=== PATIENT | female | born 1955 | race Two or more races ===

== ENCOUNTER 2017-05-18 09:55 | Inpatient (IN) | payer MEDICARE, MEDICAID ==
[~2017-05-18] VITALS: Ht 152.4 cm; Wt 55.1 kg
[2017-05-18] VITALS (7 sets, daily range): BP systolic 169–195; BP diastolic 96–106
[2017-05-18 11:04] LABS: Basophils # (auto) 0 uL; Eosinophils # (auto) 0.1 uL; Monocytes # (auto) 0.6 uL; Neutrophils # (auto) 6.4 uL
[2017-05-18 11:06] LABS: Basophils % (auto) 0.4 % (0.0-2.0); Eosinophils % (auto) 1.1 % (0.0-7.0); Hematocrit 21.7 % (36.0-46.0); Hemoglobin 7.5 g/dL (12.2-16.2); Lymphocytes # (auto) 0.9 uL; Lymphocytes % (auto) 10.6 % (10.0-50.0); Mean Corpuscular Hemoglobin 31.6 pg (28.0-32.0); Mean Corpuscular Hgb Conc. 34.4 g/dL (32.0-36.0); Mean Corpuscular Volume 91.8 fL (80.0-100.0); Monocytes % (auto) 7.9 % (0.0-12.0); Platelet Count (auto) 160 10^3/uL (140-450); Red Blood Cells 2.37 10^6/uL (4.0-5.20); Red Cell Distribution Width 19.1 % (11.8-14.3)
[2017-05-18 11:11] LABS: INR 0.97 (0.9-1.15); Partial Thromboplastin Time 28.7 sec (22.64-33.71); Prothrombin Time 10.6 sec (9.37-12.3)
[2017-05-18 11:31] LABS: Alanine Aminotransferase 20 U/L (13-56); Albumin 3.3 g/dL (3.4-5.0); Alkaline Phosphatase 209 U/L (45-117); Anion Gap 10 (5-15); Aspartate Aminotransferase 21 U/L (15-37); Bilirubin, Total 0.5 mg/dL (0.2-1.0); Blood Urea Nitrogen 32 mg/dL (7-18); Carbon Dioxide 30 mmol/L (21-32); Chloride 93 mmol/L (98-107); GFR African American 8 mL/min; GFR Non-African American 7 mL/min; Glucose 138 mg/dL (74-106); Potassium 3.8 mmol/L (3.5-5.1); Sodium 133 mmol/L (136-145); Total Protein 8.4 g/dL (6.4-8.2)
[2017-05-18] MEDS ORDERED: NIF10C PO (13:05)
[2017-05-18] MEDS ORDERED: TERA2CAP45 PO (13:05)
[2017-05-18] MEDS ORDERED: CLO01T PO (13:05)
[2017-05-18] MEDS ORDERED: SEVE800T8 PO (13:05)
[2017-05-18] MEDS ORDERED: CITA10TA59 PO (13:05)
[2017-05-18] MEDS ORDERED: ATOR20TA50 PO (13:05)
[2017-05-18] MEDS ORDERED: PANT40TA2 PO (13:05)
[2017-05-18] MEDS ORDERED: CINA30TA2 PO (13:05)
[2017-05-18] MEDS ORDERED: MORPHINE SULFATE 4 MG/ML SYR/VIAL IV PRN (13:15)
[2017-05-18] MEDS ORDERED: HYDROcodone-ACET 5/325MG TAB PO PRN (13:15)
[2017-05-18] MEDS ORDERED: ONDANSETRON HCL 4 MG/2 ML VIAL IV PRN (13:15)
[2017-05-18] MEDS ORDERED: NIFE60TA53 PO ×2 (13:26→13:29)
[2017-05-18] MEDS ORDERED: PANTOPRAZOLE 40 MG TAB PO SCH (13:30)
[2017-05-18] MEDS ORDERED: cloNIDine HCL 0.1 MG TAB PO SCH (13:30)
[2017-05-18] MEDS ORDERED: NIFEdipine 10 MG CAP PO SCH (13:30)
[2017-05-18 13:40] LABS: Phosphorus 1.5 mg/dL (2.5-4.90)
[2017-05-18] MEDS ORDERED: cloNIDine HCL 0.1 MG TAB PO ONE (13:45)
[2017-05-18] MEDS ORDERED: EPOETIN ALFA 10,000 UNIT/1 ML VIAL IV ONE (13:45)
[2017-05-18] MEDS ORDERED: SODIUM CHL 0.9% 1000 ML BAG XX ONE (13:45)
[2017-05-18] MEDS ORDERED: PANTOPRAZOLE 40 MG TAB PO ONE (13:45)
[2017-05-18] MEDS ORDERED: SEVELAMER 800 MG TAB PO SCH (18:00)
[2017-05-18] MEDS: CINACALCET HYDROCHLORIDE 30 MG TAB PO SCH (18:48)
[2017-05-18] MEDS: CITALOPRAM HYDROBR 20 MG TAB PO SCH (18:48)
[2017-05-18] MEDS: LABETALOL HCL 5 MG/ML ML 20ML VIAL IV PRN (20:47)
[2017-05-18] MEDS ORDERED: NIFEdipine ER 30 MG TAB PO SCH (22:00)
[2017-05-18] MEDS: ATORVASTATIN 20 MG TAB PO SCH (22:37)
[2017-05-18 23:13] LABS: Basophils # (auto) 0 uL; Basophils % (auto) 0.4 % (0.0-2.0); Eosinophils # (auto) 0.1 uL; Eosinophils % (auto) 0.7 % (0.0-7.0); Hematocrit 27.4 % (36.0-46.0); Hemoglobin 9.1 g/dL (12.2-16.2); Lymphocytes # (auto) 0.9 uL; Lymphocytes % (auto) 11.5 % (10.0-50.0); Mean Corpuscular Hemoglobin 30.6 pg (28.0-32.0); Mean Corpuscular Hgb Conc. 33.1 g/dL (32.0-36.0); Mean Corpuscular Volume 92.4 fL (80.0-100.0); Monocytes # (auto) 0.7 uL; Monocytes % (auto) 9.4 % (0.0-12.0); Neutrophils # (auto) 5.9 uL; Platelet Count (auto) 161 10^3/uL (140-450); Red Blood Cells 2.96 10^6/uL (4.0-5.20); Red Cell Distribution Width 17.1 % (11.8-14.3); White Blood Cell 7.6 10^3/uL (4.4-10.8)
[2017-05-18 23:27] LABS: Albumin 2.9 g/dL (3.4-5.0); Calcium 8.5 mg/dL (8.5-10.1); Potassium 3.9 mmol/L (3.5-5.1)
[2017-05-18 23:38] LABS: BUN/Creatinine Ratio 3.7; Bilirubin, Total 0.6 mg/dL (0.2-1.0); Total Protein 7.7 g/dL (6.4-8.2)
[2017-05-19] VITALS (8 sets, daily range): BP systolic 148–205; BP diastolic 79–114
[2017-05-19 06:23] LABS: Basophils # (auto) 0 uL; Basophils % (auto) 0.6 % (0.0-2.0); Eosinophils # (auto) 0.1 uL; Eosinophils % (auto) 1.1 % (0.0-7.0); Hematocrit 27.4 % (36.0-46.0); Hemoglobin 9.4 g/dL (12.2-16.2); Lymphocytes % (auto) 13.5 % (10.0-50.0); Mean Corpuscular Hemoglobin 31.1 pg (28.0-32.0); Mean Corpuscular Hgb Conc. 34.1 g/dL (32.0-36.0); Mean Corpuscular Volume 91.2 fL (80.0-100.0); Monocytes # (auto) 0.8 uL; Monocytes % (auto) 10.6 % (0.0-12.0); Neutrophils # (auto) 5.3 uL; Neutrophils % (auto) 74.2 % (37.0-80.0); Platelet Count (auto) 150 10^3/uL (140-450); Red Blood Cells 3.01 10^6/uL (4.0-5.20); White Blood Cell 7.1 10^3/uL (4.4-10.8)
[2017-05-19 06:33] LABS: Potassium 4.1 mmol/L (3.5-5.1)
[2017-05-19 06:38] LABS: Calcium 8.9 mg/dL (8.5-10.1)
[2017-05-19] MEDS ORDERED: cloNIDine HCL 0.1 MG TAB PO SCH (10:00)
[2017-05-19] MEDS: CINACALCET HYDROCHLORIDE 30 MG TAB PO SCH ×2 (10:00→16:11)
[2017-05-19] MEDS ORDERED: PANTOPRAZOLE 40 MG TAB PO SCH (10:00)
[2017-05-19] MEDS ORDERED: NIFEdipine 10 MG CAP PO SCH (10:00)
[2017-05-19] MEDS: cloNIDine HCL 0.1 MG TAB PO SCH (10:44)
[2017-05-19] MEDS: PANTOPRAZOLE 40 MG TAB PO SCH (10:44)
[2017-05-19] MEDS: CITALOPRAM HYDROBR 20 MG TAB PO SCH (10:45)
[2017-05-19] MEDS: NIFEdipine ER 30 MG TAB PO SCH (10:46)
[2017-05-19] MEDS: LABETALOL HCL 5 MG/ML ML 20ML VIAL IV PRN ×2 (13:13→16:12)
[2017-05-19] MEDS: cloNIDine HCL 0.1 MG TAB PO PRN ×2 (13:14→21:10)
[2017-05-19] MEDS: BOOST PLUS 8 ounce PO SCH (19:45)
[2017-05-19] MEDS: ATORVASTATIN 20 MG TAB PO SCH (21:09)
[2017-05-20 05:20] VITALS: BP 122/72
[2017-05-20 07:04] LABS: Basophils # (auto) 0 uL; Basophils % (auto) 0.4 % (0.0-2.0); Eosinophils # (auto) 0.1 uL; Eosinophils % (auto) 1.1 % (0.0-7.0); Hemoglobin 10.1 g/dL (12.2-16.2); Lymphocytes % (auto) 15.5 % (10.0-50.0); Mean Corpuscular Hemoglobin 30.9 pg (28.0-32.0); Mean Corpuscular Hgb Conc. 33.7 g/dL (32.0-36.0); Mean Corpuscular Volume 91.7 fL (80.0-100.0); Monocytes # (auto) 0.6 uL; Monocytes % (auto) 9.5 % (0.0-12.0); Neutrophils # (auto) 4.9 uL; Neutrophils % (auto) 73.5 % (37.0-80.0); Platelet Count (auto) 165 10^3/uL (140-450); Red Blood Cells 3.28 10^6/uL (4.0-5.20); Red Cell Distribution Width 17.4 % (11.8-14.3); White Blood Cell 6.7 10^3/uL (4.4-10.8)
[2017-05-20 07:32] LABS: BUN/Creatinine Ratio 4.7; Calcium 8.7 mg/dL (8.5-10.1); Potassium 4.4 mmol/L (3.5-5.1)
[2017-05-20 08:00] VITALS: BP 165/89
[2017-05-20] MEDS: BOOST PLUS 8 ounce PO SCH ×2 (08:19→12:00)
[2017-05-20 09:00] VITALS: BP 165/89
[2017-05-20] MEDS: PANTOPRAZOLE 40 MG TAB PO SCH (09:27)
[2017-05-20] MEDS: cloNIDine HCL 0.1 MG TAB PO SCH ×2 (09:27→10:00)
[2017-05-20] MEDS: NIFEdipine ER 30 MG TAB PO SCH ×2 (09:28→10:00)
[2017-05-20] MEDS: CITALOPRAM HYDROBR 20 MG TAB PO SCH (09:28)
[2017-05-20] MEDS ORDERED: HEPARIN 1,000 UNITS/ml 1ML VIAL IV ONE (11:00)
[2017-05-20] MEDS ORDERED: EPOETIN ALFA 10,000 UNIT/1 ML VIAL IV ONE (11:00)
[2017-05-20 11:02] VITALS: BP 165/89
[2017-05-20] MEDS ORDERED: HEPARIN 1,000 UNITS/ml 1ML VIAL XX ONE (11:45)
== END 2017-05-20 14:40 | disposition home or self-care (01) | DRG 682 ==
LOC: ER 09:55 → OVERFLOW 09:56 → CENTRAL 20:57
PROVIDERS: ADMIT Internal Medicine; ATTEND Internal Medicine
PROC: 30233N1 Transfusion of Nonautologous Red Blood Cells into Peripheral Vein, Percutaneous Approach (ICD-10-PCS; principal; 2017-05-18)
PROC: 5A1D70Z Performance of Urinary Filtration, Intermittent, Less than 6 Hours Per Day (ICD-10-PCS; 2017-05-18)
PROC: 5A1D70Z Performance of Urinary Filtration, Intermittent, Less than 6 Hours Per Day (ICD-10-PCS; 2017-05-20)
DX: I13.11 Hypertensive heart and chronic kidney disease without heart failure, with stage 5 chronic kidney disease, or end stage renal disease (principal); N18.6 End stage renal disease; E11.22 Type 2 diabetes mellitus with diabetic chronic kidney disease; E44.0 Moderate protein-calorie malnutrition; Z94.0 Kidney transplant status; D63.8 Anemia in other chronic diseases classified elsewhere; E78.5 Hyperlipidemia, unspecified; I70.0 Atherosclerosis of aorta; F32.9 Major depressive disorder, single episode, unspecified; F41.9 Anxiety disorder, unspecified; Z85.118 Personal history of other malignant neoplasm of bronchus and lung; Z90.2 Acquired absence of lung [part of]; Z68.23 Body mass index [BMI] 23.0-23.9, adult; Z99.2 Dependence on renal dialysis; Z79.899 Other long term (current) drug therapy; Z88.2 Allergy status to sulfonamides
CPT/HCPCS: 36415; 36430; 71045; 71046; 80048; 80053; 80061; 83036; 84100; 84443; 84484; 85025; 85610; 85730; 86850; 86900; 86901; 86920; 87081; 90935; 93005; 96374; 99291; J0885; J1642; J2405

== ENCOUNTER 2017-09-21 21:55 | Inpatient (IN) | payer MEDICARE, MEDICAID ==
[~2017-09-21] VITALS: Ht 154.9 cm; Wt 50.0 kg
[~2017-09-21 21:55] MED LIST: ATOR20TA50 PO; CINA30TA2 PO; CITA10TA59 PO; CLO01T PO; NIFE60TA53 PO; PANT40TA2 PO; SEVE800T8 PO; TERA2CAP45 PO
[2017-09-21] MEDS ORDERED: ONDANSETRON HCL 4 MG/2 ML VIAL ONE (22:30)
[2017-09-21 22:54] LABS: Basophils # (auto) 0.1 uL; Eosinophils # (auto) 0 uL; Eosinophils % (auto) 0.4 % (0.0-7.0); Monocytes # (auto) 0.7 uL; Neutrophils # (auto) 7.2 uL
[2017-09-21 22:55] LABS: Basophils % (auto) 0.7 % (0.0-2.0); Hematocrit 21.5 % (36.0-46.0); Hemoglobin 7.3 g/dL (12.2-16.2); Lymphocytes # (auto) 1.9 uL; Mean Corpuscular Hemoglobin 32.8 pg (28.0-32.0); Mean Corpuscular Hgb Conc. 34.1 g/dL (32.0-36.0); Mean Corpuscular Volume 96.3 fL (80.0-100.0); Monocytes % (auto) 7.1 % (0.0-12.0); Neutrophils % (auto) 72.8 % (37.0-80.0); Platelet Count (auto) 154 10^3/uL (140-450); Red Blood Cells 2.23 10^6/uL (4.0-5.20); Red Cell Distribution Width 15.4 % (11.8-14.3); White Blood Cell 9.9 10^3/uL (4.4-10.8)
[2017-09-21] MEDS ORDERED: ONDANSETRON HCL 4 MG/2 ML VIAL IV ONE (23:00)
[2017-09-21 23:08] LABS: Albumin 3.4 g/dL (3.4-5.0); BUN/Creatinine Ratio 8.1; Calcium 9.1 mg/dL (8.5-10.1); Magnesium 2.9 mg/dL (1.6-2.6); Potassium 5.1 mmol/L (3.5-5.1)
[2017-09-21 23:13] LABS: Bilirubin, Total 0.5 mg/dL (0.2-1.0); Total Protein 8.1 g/dL (6.4-8.2)
[2017-09-21 23:28] LABS: INR 0.97 (0.9-1.15); Prothrombin Time 10.4 sec (9.27-12.13)
[2017-09-22] MEDS ORDERED: cloNIDine HCL 0.1 MG TAB ONE (00:08)
[2017-09-22] MEDS ORDERED: cloNIDine HCL 0.1 MG TAB PO ONE (01:00)
[2017-09-22] MEDS ORDERED: LABETALOL HCL 200 MG TAB PO ONE (01:45)
[2017-09-22 01:50] VITALS: BP 186/120
[2017-09-22 02:10] VITALS: BP 185/122
[2017-09-22] MEDS ORDERED: PANTOPRAZOLE 40 MG/10 ML VIAL IV ONE (05:15)
[2017-09-22] MEDS ORDERED: MORPHINE SULFATE 4 MG/ML SYR/VIAL IV ONE ×2 (05:15)
[2017-09-22] MEDS ORDERED: ONDANSETRON HCL 4 MG/2 ML VIAL IV ONE ×2 (05:15)
[2017-09-22 05:20] VITALS: BP 186/124
[2017-09-22] MEDS ORDERED: MORPHINE SULF INJ 2 MG/ML SYRINGE 1ML IV PRN (05:30)
[2017-09-22] MEDS ORDERED: DEXTROSE (50%) 50ML SYRG IV PRN (05:30)
[2017-09-22] MEDS ORDERED: TEMAZEPAM 15 MG CAP PO PRN (05:30)
[2017-09-22] MEDS ORDERED: NITROGLYCERIN 0.4 MG SL TAB SL PRN (05:30)
[2017-09-22] MEDS ORDERED: ACETAMINOPHEN 325 MG TAB PO PRN (05:30)
[2017-09-22 06:12] LABS: Hematocrit 27.3 % (36.0-46.0); Hemoglobin 9.4 g/dL (12.2-16.2)
[2017-09-22 06:32] LABS: INR 1.01 (0.9-1.15); Partial Thromboplastin Time 28.8 sec (23.78-33.04); Prothrombin Time 10.8 sec (9.27-12.13)
[2017-09-22] MEDS: ACCU-CHEK COMFORT CURVE STRIP VI SCH ×4 (07:38→23:55)
[2017-09-22] MEDS: InsuLIN REG 1unit/0.01ml Soln (100units/ml) SC SCH ×4 (07:42→23:56)
[2017-09-22] MEDS: SEVELAMER 800 MG TAB PO SCH ×3 (08:00→18:00)
[2017-09-22] MEDS: cloNIDine HCL 0.1 MG TAB PO SCH ×2 (09:40→21:52)
[2017-09-22] MEDS: NIFEdipine ER 30 MG TAB PO SCH (09:40)
[2017-09-22] MEDS ORDERED: LISINOPRIL 20 MG TAB PO ONE (10:30)
[2017-09-22] MEDS: ONDANSETRON HCL 4 MG/2 ML VIAL IV PRN ×2 (10:39→17:57)
[2017-09-22] MEDS ORDERED: PROMETHAZINE HCL 25 MG/ML 1ML ONE (12:06)
[2017-09-22] MEDS ORDERED: PROMETHAZINE HCL 25 MG/ML 1ML IV ONE (12:15)
[2017-09-22] MEDS ORDERED: SODIUM CHL 0.9% 1000 ML BAG XX ONE (14:00)
[2017-09-22] MEDS ORDERED: EPOETIN ALFA 10,000 UNIT/1 ML VIAL IV ONE (14:00)
[2017-09-22] MEDS ORDERED: GOLYTELY 4L KIT PO ONE (16:00)
[2017-09-22 20:00] VITALS: BP 150/97
[2017-09-22] MEDS: PANTOPRAZOLE 40 MG/10 ML VIAL IV SCH (21:50)
[2017-09-22] MEDS: ATORVASTATIN 20 MG TAB PO SCH (21:51)
[2017-09-22 22:00] VITALS: BP 150/97
[2017-09-23] MEDS ORDERED: CINA30TA2 PO (01:10)
[2017-09-23] MEDS ORDERED: LABE200T18 PO (01:10)
[2017-09-23] MEDS ORDERED: B-CO1CAP6 PO (01:10)
[2017-09-23] MEDS ORDERED: CALC0.25 PO (01:10)
[2017-09-23] MEDS ORDERED: ATOR10TA52 PO (01:10)
[2017-09-23] MEDS ORDERED: SERT-160 PO (01:10)
[2017-09-23 05:00] VITALS: BP 169/94
[2017-09-23] MEDS ORDERED: GOLYTELY 4L KIT PO ONE (06:00)
[2017-09-23] MEDS: InsuLIN REG 1unit/0.01ml Soln (100units/ml) SC SCH ×4 (06:00→23:47)
[2017-09-23] MEDS: ACCU-CHEK COMFORT CURVE STRIP VI SCH ×4 (06:29→23:47)
[2017-09-23 07:13] LABS: Albumin 3.4 g/dL (3.4-5.0); BUN/Creatinine Ratio 4.9; Calcium 8.9 mg/dL (8.5-10.1)
[2017-09-23 07:14] LABS: Basophils # (auto) 0 uL; Basophils % (auto) 0.7 % (0.0-2.0); Eosinophils # (auto) 0 uL; Hemoglobin 8.5 g/dL (12.2-16.2); Lymphocytes # (auto) 0.7 uL; Lymphocytes % (auto) 13.1 % (10.0-50.0); Mean Corpuscular Hemoglobin 32.1 pg (28.0-32.0); Mean Corpuscular Volume 94.3 fL (80.0-100.0); Monocytes # (auto) 0.6 uL; Monocytes % (auto) 12.5 % (0.0-12.0); Neutrophils # (auto) 3.7 uL; Neutrophils % (auto) 73.7 % (37.0-80.0); Nucleated Red Blood Cells % 0.2 %; Platelet Count (auto) 131 10^3/uL (140-450); Red Blood Cells 2.65 10^6/uL (4.0-5.20); Red Cell Distribution Width 16.8 % (11.8-14.3)
[2017-09-23 07:16] LABS: Bilirubin, Total 0.7 mg/dL (0.2-1.0); Total Protein 7.9 g/dL (6.4-8.2)
[2017-09-23] MEDS: SEVELAMER 800 MG TAB PO SCH ×3 (08:00→18:00)
[2017-09-23] MEDS: PANTOPRAZOLE 40 MG/10 ML VIAL IV SCH ×2 (08:21→21:39)
[2017-09-23] MEDS: cloNIDine HCL 0.1 MG TAB PO SCH ×2 (08:21→21:40)
[2017-09-23] MEDS: NIFEdipine ER 30 MG TAB PO SCH ×2 (08:22→10:00)
[2017-09-23] MEDS: ONDANSETRON HCL 4 MG/2 ML VIAL IV PRN (08:22)
[2017-09-23] MEDS: hydrALAZINE HCL 20 MG/ML VL IV PRN ×2 (08:22→18:31)
[2017-09-23] MEDS ORDERED: diphenhdrAMINE HCL 50 MG/1 ML VL ONE (08:44)
[2017-09-23] MEDS ORDERED: SODIUM CHLORIDE LOCK 10 ML ONE (08:44)
[2017-09-23] MEDS ORDERED: LIDOCAINE VISCOUS 2% 15ML UD ONE (08:44)
[2017-09-23 09:00] VITALS: BP 187/117
[2017-09-23] MEDS ORDERED: LABETALOL HCL 5 MG/ML ML 20ML VIAL IV ONE (09:34)
[2017-09-23] MEDS: MIDAZOLAM HCL 5 MG/ML-1ML VIAL ONE ×4 (09:39→09:57)
[2017-09-23] MEDS: fentaNYL CITRATE 100 MCG/2 ML VL ONE ×4 (09:39→09:57)
[2017-09-23] MEDS: LABETALOL HCL 200 MG TAB PO SCH ×2 (10:00→21:40)
[2017-09-23] MEDS ORDERED: PANTOPRAZOLE 40 MG/10 ML VIAL IV SCH (10:00)
[2017-09-23] MEDS ORDERED: LISINOPRIL 20 MG TAB PO SCH (10:00)
[2017-09-23] MEDS ORDERED: NICARDIPINE 25MG/250ML BAG KIT 250 ML IV SCH (11:00)
[2017-09-23 12:10] VITALS: BP 149/85
[2017-09-23 13:04] VITALS: BP 177/102
[2017-09-23 17:00] VITALS: BP 154/104
[2017-09-23] MEDS: ATORVASTATIN 20 MG TAB PO SCH (21:40)
[2017-09-23 22:00] VITALS: BP 158/92
[2017-09-24 05:00] VITALS: BP 140/78
[2017-09-24] MEDS: InsuLIN REG 1unit/0.01ml Soln (100units/ml) SC SCH ×2 (06:00→12:00)
[2017-09-24] MEDS: ACCU-CHEK COMFORT CURVE STRIP VI SCH ×2 (06:25→12:00)
[2017-09-24 07:04] LABS: Basophils # (auto) 0 uL; Eosinophils # (auto) 0 uL; Hemoglobin 7.9 g/dL (12.2-16.2); Lymphocytes # (auto) 0.6 uL; Mean Corpuscular Hemoglobin 32.4 pg (28.0-32.0); Mean Corpuscular Hgb Conc. 34.4 g/dL (32.0-36.0); Neutrophils # (auto) 3.4 uL; Neutrophils % (auto) 74.9 % (37.0-80.0); Nucleated Red Blood Cells % 0.2 %; Red Blood Cells 2.45 10^6/uL (4.0-5.20)
[2017-09-24 07:07] LABS: Basophils % (auto) 0.4 % (0.0-2.0); Eosinophils % (auto) 0.3 % (0.0-7.0); Hematocrit 23.1 % (36.0-46.0); Lymphocytes % (auto) 12.1 % (10.0-50.0); Mean Corpuscular Volume 94.2 fL (80.0-100.0); Monocytes # (auto) 0.6 uL; Monocytes % (auto) 12.3 % (0.0-12.0); Platelet Count (auto) 133 10^3/uL (140-450); Red Cell Distribution Width 16.3 % (11.8-14.3); White Blood Cell 4.6 10^3/uL (4.4-10.8)
[2017-09-24 07:14] LABS: Potassium 4.1 mmol/L (3.5-5.1)
[2017-09-24] MEDS: SEVELAMER 800 MG TAB PO SCH ×2 (08:00→13:34)
[2017-09-24 09:00] VITALS: BP 153/91
[2017-09-24] MEDS ORDERED: EPOETIN ALFA 10,000 UNIT/1 ML VIAL IV ONE (10:30)
[2017-09-24] MEDS: PANTOPRAZOLE 40 MG/10 ML VIAL IV SCH (13:32)
[2017-09-24] MEDS: cloNIDine HCL 0.1 MG TAB PO SCH (13:32)
[2017-09-24] MEDS: NIFEdipine ER 30 MG TAB PO SCH (13:33)
[2017-09-24] MEDS: LABETALOL HCL 200 MG TAB PO SCH (13:33)
[2017-09-24 14:13] VITALS: BP 210/101
== END 2017-09-24 16:30 | disposition home or self-care (01) | DRG 377 ==
LOC: EDBD 21:55 → ER 21:58 → TELE 21:59 → TELE-CENTR 09-22 18:10
PROVIDERS: ADMIT Nurse Practitioner; ATTEND Internal Medicine
PROC: 30233N1 Transfusion of Nonautologous Red Blood Cells into Peripheral Vein, Percutaneous Approach (ICD-10-PCS; 2017-09-22)
PROC: 5A1D70Z Performance of Urinary Filtration, Intermittent, Less than 6 Hours Per Day (ICD-10-PCS; 2017-09-22)
PROC: 0DJ08ZZ Inspection of Upper Intestinal Tract, Via Natural or Artificial Opening Endoscopic (ICD-10-PCS; 2017-09-23)
PROC: 0DJD8ZZ Inspection of Lower Intestinal Tract, Via Natural or Artificial Opening Endoscopic (ICD-10-PCS; principal; 2017-09-23 09:15)
PROC: 5A1D70Z Performance of Urinary Filtration, Intermittent, Less than 6 Hours Per Day (ICD-10-PCS; 2017-09-24)
DX: K92.2 Gastrointestinal hemorrhage, unspecified (principal); N18.6 End stage renal disease; I13.11 Hypertensive heart and chronic kidney disease without heart failure, with stage 5 chronic kidney disease, or end stage renal disease; Z94.0 Kidney transplant status; D62 Acute posthemorrhagic anemia; K64.8 Other hemorrhoids; E11.22 Type 2 diabetes mellitus with diabetic chronic kidney disease; E78.5 Hyperlipidemia, unspecified; Z85.118 Personal history of other malignant neoplasm of bronchus and lung; Z99.2 Dependence on renal dialysis; Z88.6 Allergy status to analgesic agent; Z88.2 Allergy status to sulfonamides; Z79.899 Other long term (current) drug therapy; Z83.3 Family history of diabetes mellitus; Z82.49 Family history of ischemic heart disease and other diseases of the circulatory system; Z90.2 Acquired absence of lung [part of]
CPT/HCPCS: 36415; 36430; 43235; 45378; 71045; 74176; 80048; 80053; 82270; 82962; 83690; 83735; 84484; 85014; 85018; 85025; 85610; 85730; 86850; 86900; 86901; 86920; 90935; 93005; 96374; 96375; A6257; C9113; J0885; J1815; J2250; J2405

== ENCOUNTER 2017-10-09 11:06 | Emergency (ER) | payer MEDICARE, MEDICAID ==
[~2017-10-09] VITALS: Ht 160 cm; Wt 49.9 kg
[~2017-10-09 11:06] MED LIST changes: +ATOR10TA52 PO; -ATOR20TA50 PO; +B-CO1CAP6 PO; +CALC0.25 PO; -CITA10TA59 PO; +LABE200T18 PO; +SERT-160 PO
[2017-10-09 11:23] VITALS: BP 189/98
[2017-10-09 12:07] LABS: Basophils # (auto) 0 uL; Basophils % (auto) 0.4 % (0.0-2.0); Eosinophils # (auto) 0 uL; Hematocrit 24.8 % (36.0-46.0); Hemoglobin 8.5 g/dL (12.2-16.2); Lymphocytes # (auto) 0.3 uL; Lymphocytes % (auto) 4.9 % (10.0-50.0); Mean Corpuscular Hemoglobin 31.5 pg (28.0-32.0); Mean Corpuscular Hgb Conc. 34.4 g/dL (32.0-36.0); Mean Corpuscular Volume 91.5 fL (80.0-100.0); Monocytes # (auto) 0.4 uL; Monocytes % (auto) 7.4 % (0.0-12.0); Neutrophils # (auto) 4.9 uL; Neutrophils % (auto) 87.3 % (37.0-80.0); Platelet Count (auto) 176 10^3/uL (140-450); Red Blood Cells 2.71 10^6/uL (4.0-5.20); Red Cell Distribution Width 15.4 % (11.8-14.3); White Blood Cell 5.6 10^3/uL (4.4-10.8)
[2017-10-09 12:20] LABS: Albumin 3.4 g/dL (3.4-5.0); BUN/Creatinine Ratio 7.3; Calcium 8.8 mg/dL (8.5-10.1); Magnesium 2.3 mg/dL (1.6-2.6); Potassium 3.9 mmol/L (3.5-5.1)
[2017-10-09 12:25] LABS: Bilirubin, Total 0.5 mg/dL (0.2-1.0); Total Protein 8.2 g/dL (6.4-8.2)
== END 2017-10-09 14:34 | disposition left against medical advice (07) ==
LOC: ER 11:06 → EDBD 11:06 → ER 14:34
DX: R11.2 Nausea with vomiting, unspecified (principal); R53.1 Weakness; Z53.21 Procedure and treatment not carried out due to patient leaving prior to being seen by health care provider
CPT/HCPCS: 36415; 71046; 80053; 83735; 84484; 85025; 93005

== ENCOUNTER 2017-11-01 16:21 | Inpatient (IN) | payer MEDICARE, MEDICAID ==
[~2017-11-01] VITALS: Ht 167.6 cm; Wt 51.6 kg
[2017-11-01 19:18] LABS: Basophils # (auto) 0 uL; Basophils % (auto) 0.5 % (0.0-2.0); Eosinophils # (auto) 0 uL; Lymphocytes # (auto) 0.3 uL; Monocytes % (auto) 9.5 % (0.0-12.0); Platelet Count (auto) 120 10^3/uL (140-450)
[2017-11-01 19:20] LABS: Eosinophils % (auto) 0.3 % (0.0-7.0); Hematocrit 23.3 % (36.0-46.0); Hemoglobin 7.7 g/dL (12.2-16.2); Mean Corpuscular Hgb Conc. 33.2 g/dL (32.0-36.0); Mean Corpuscular Volume 93.4 fL (80.0-100.0); Monocytes # (auto) 0.4 uL; Neutrophils # (auto) 3.9 uL; Neutrophils % (auto) 82.7 % (37.0-80.0); Red Blood Cells 2.49 10^6/uL (4.0-5.20); Red Cell Distribution Width 16.5 % (11.8-14.3); White Blood Cell 4.7 10^3/uL (4.4-10.8)
[2017-11-01 19:38] LABS: Albumin 3.2 g/dL (3.4-5.0); BUN/Creatinine Ratio 5.7; Bilirubin, Total 0.4 mg/dL (0.2-1.0); Calcium 8.1 mg/dL (8.5-10.1); Total Protein 7.3 g/dL (6.4-8.2)
[2017-11-01] MEDS ORDERED: SODIUM CHLORIDE 0.9% 250 ML IV ONE (21:15)
[2017-11-01] MEDS ORDERED: metroNIDAZOLE 500MG/100ML 100 ML IV ONE (21:15)
[2017-11-01] MEDS ORDERED: ENALAPRILAT 1.25 MG/ML-1ML VIAL IV ONE (21:15)
[2017-11-01 22:24] LABS: Magnesium 2.6 mg/dL (1.6-2.6)
[2017-11-01 22:25] LABS: INR 1.02 (0.9-1.15); Partial Thromboplastin Time 30.5 sec (23.78-33.04); Prothrombin Time 10.9 sec (9.27-12.13)
[2017-11-01] MEDS ORDERED: NIFEdipine 10 MG CAP PO ONE (22:30)
[2017-11-02] MEDS ORDERED: ONDANSETRON HCL 4 MG/2 ML VIAL IV PRN (01:30)
[2017-11-02] MEDS ORDERED: TEMAZEPAM 15 MG CAP PO PRN (01:30)
[2017-11-02] MEDS ORDERED: HYDROcodone-ACET 5/325MG TAB PO PRN (01:30)
[2017-11-02] MEDS ORDERED: cloNIDine HCL 0.1 MG TAB ONE (02:52)
[2017-11-02] MEDS: cloNIDine HCL 0.1 MG TAB PO PRN ×3 (02:53→21:25)
[2017-11-02] MEDS ORDERED: hydrALAZINE HCL 20 MG/ML VL IV PRN (04:15)
[2017-11-02] MEDS ORDERED: metroNIDAZOLE 500MG/100ML 100 ML IV SCH (06:00)
[2017-11-02] MEDS ORDERED: methylPREDNISolone SOD SUCC 40 MG/ML VL IV SCH (06:00)
[2017-11-02 07:34] LABS: Basophils # (auto) 0 uL; Eosinophils # (auto) 0 uL; Monocytes # (auto) 0.2 uL; Neutrophils # (auto) 3.9 uL
[2017-11-02 07:37] LABS: Basophils % (auto) 0.5 % (0.0-2.0); Eosinophils % (auto) 0.3 % (0.0-7.0); Hematocrit 23.3 % (36.0-46.0); Lymphocytes # (auto) 0.3 uL; Mean Corpuscular Hemoglobin 31.7 pg (28.0-32.0); Mean Corpuscular Hgb Conc. 34.2 g/dL (32.0-36.0); Mean Corpuscular Volume 92.8 fL (80.0-100.0); Monocytes % (auto) 4.5 % (0.0-12.0); Neutrophils % (auto) 88.7 % (37.0-80.0); Platelet Count (auto) 111 10^3/uL (140-450); Red Blood Cells 2.51 10^6/uL (4.0-5.20); Red Cell Distribution Width 16.8 % (11.8-14.3); White Blood Cell 4.4 10^3/uL (4.4-10.8)
[2017-11-02 07:44] LABS: BUN/Creatinine Ratio 5.7; Calcium 7.8 mg/dL (8.5-10.1)
[2017-11-02] MEDS ORDERED: LABETALOL HCL 5 MG/ML ML 20ML VIAL IV ONE (08:45)
[2017-11-02] MEDS: SEVELAMER 800 MG TAB PO SCH ×3 (08:56→17:11)
[2017-11-02] MEDS ORDERED: cefTRIAXone 1GM/10ml IVPUSH 10 ML IV SCH (09:00)
[2017-11-02] MEDS ORDERED: NIFEdipine ER 30 MG TAB PO SCH (10:00)
[2017-11-02] MEDS ORDERED: cloNIDine HCL 0.1 MG TAB PO SCH (10:00)
[2017-11-02] MEDS: NIFEdipine ER 30 MG TAB PO SCH ×2 (10:12→21:30)
[2017-11-02] MEDS: LABETALOL HCL 200 MG TAB PO SCH ×2 (10:12→21:23)
[2017-11-02] MEDS: SERTRALINE HCL 50 MG TAB PO SCH (10:12)
[2017-11-02] MEDS ORDERED: ENALAPRILAT 1.25 MG/ML-1ML VIAL IV PRN (11:45)
[2017-11-02 16:59] VITALS: BP 159/96
[2017-11-02] MEDS: ACETAMINOPHEN 325 MG TAB PO PRN (17:11)
[2017-11-02] MEDS ORDERED: TEMA30CA PO (18:52)
[2017-11-02] MEDS ORDERED: B-COTAB10 OR (18:52)
[2017-11-02] MEDS: ATORVASTATIN 20 MG TAB PO SCH (21:22)
[2017-11-02 22:32] VITALS: BP 189/79
[2017-11-02 23:50] VITALS: BP 181/101
[2017-11-03 04:49] VITALS: BP 180/103
[2017-11-03 08:33] LABS: Basophils # (auto) 0 uL; Basophils % (auto) 0.7 % (0.0-2.0); Eosinophils # (auto) 0 uL; Eosinophils % (auto) 0.2 % (0.0-7.0); Hemoglobin 8.2 g/dL (12.2-16.2); Lymphocytes # (auto) 0.3 uL; Lymphocytes % (auto) 6.1 % (10.0-50.0); Mean Corpuscular Hemoglobin 32.1 pg (28.0-32.0); Mean Corpuscular Hgb Conc. 34.4 g/dL (32.0-36.0); Mean Corpuscular Volume 93.3 fL (80.0-100.0); Monocytes # (auto) 0.5 uL; Monocytes % (auto) 10.7 % (0.0-12.0); Neutrophils # (auto) 4.2 uL; Neutrophils % (auto) 82.3 % (37.0-80.0); Platelet Count (auto) 115 10^3/uL (140-450); Red Blood Cells 2.57 10^6/uL (4.0-5.20); Red Cell Distribution Width 16.8 % (11.8-14.3)
[2017-11-03 09:00] VITALS: BP 181/102
[2017-11-03] MEDS: SEVELAMER 800 MG TAB PO SCH ×3 (09:00→18:29)
[2017-11-03] MEDS: cloNIDine HCL 0.1 MG TAB PO PRN ×2 (09:03→14:58)
[2017-11-03 09:06] LABS: Calcium 8.3 mg/dL (8.5-10.1); Potassium 3.9 mmol/L (3.5-5.1)
[2017-11-03] MEDS ORDERED: EPOETIN ALFA 10,000 UNIT/1 ML VIAL IV ONE (09:45)
[2017-11-03] MEDS: NIFEdipine ER 30 MG TAB PO SCH ×2 (12:46→21:58)
[2017-11-03] MEDS: SERTRALINE HCL 50 MG TAB PO SCH (12:47)
[2017-11-03 13:00] VITALS: BP 199/105
[2017-11-03] MEDS: LABETALOL HCL 200 MG TAB PO SCH ×2 (14:58→22:00)
[2017-11-03] MEDS: ACETAMINOPHEN 325 MG TAB PO PRN (15:04)
[2017-11-03 17:00] VITALS: BP 146/76
[2017-11-03 21:43] VITALS: BP 165/90
[2017-11-03] MEDS: ATORVASTATIN 20 MG TAB PO SCH (22:00)
[2017-11-03] MEDS ORDERED: TERAZOSIN HCL 1 MG CAP PO SCH (22:00)
[2017-11-04 05:00] VITALS: BP 150/78
[2017-11-04] MEDS: LABETALOL HCL 200 MG TAB PO SCH (05:58)
[2017-11-04 06:02] LABS: Basophils # (auto) 0 uL; Eosinophils # (auto) 0 uL; Lymphocytes # (auto) 0.4 uL; Neutrophils # (auto) 2.9 uL; Nucleated Red Blood Cells % 0.1 %
[2017-11-04 06:04] LABS: Basophils % (auto) 0.5 % (0.0-2.0); Eosinophils % (auto) 0.5 % (0.0-7.0); Hematocrit 24.2 % (36.0-46.0); Lymphocytes % (auto) 10.5 % (10.0-50.0); Mean Corpuscular Hemoglobin 31.6 pg (28.0-32.0); Mean Corpuscular Hgb Conc. 33.7 g/dL (32.0-36.0); Mean Corpuscular Volume 93.7 fL (80.0-100.0); Monocytes # (auto) 0.5 uL; Monocytes % (auto) 13.6 % (0.0-12.0); Neutrophils % (auto) 74.9 % (37.0-80.0); Red Cell Distribution Width 16.4 % (11.8-14.3)
[2017-11-04 06:06] LABS: Hemoglobin 8.3 g/dL (12.2-16.2); Platelet Count (auto) 126 10^3/uL (140-450)
[2017-11-04 06:07] LABS: Red Blood Cells 2.61 10^6/uL (4.0-5.20)
[2017-11-04 06:27] LABS: Calcium 8.5 mg/dL (8.5-10.1); Potassium 4.2 mmol/L (3.5-5.1)
[2017-11-04 06:30] LABS: BUN/Creatinine Ratio 4.6
[2017-11-04 08:22] VITALS: BP 136/75
[2017-11-04] MEDS: NIFEdipine ER 30 MG TAB PO SCH (09:23)
[2017-11-04] MEDS: SEVELAMER 800 MG TAB PO SCH ×2 (09:23→12:00)
[2017-11-04] MEDS: SERTRALINE HCL 50 MG TAB PO SCH (09:24)
[2017-11-04 12:08] VITALS: BP 136/80
== END 2017-11-04 12:56 | disposition home or self-care (01) | DRG 377 ==
LOC: ER 16:21 → OVERFLOW 16:22 → TELE-EAST 11-02 15:47
PROVIDERS: ADMIT Nurse Practitioner Family; ATTEND Internal Medicine
PROC: 5A1D70Z Performance of Urinary Filtration, Intermittent, Less than 6 Hours Per Day (ICD-10-PCS; principal; 2017-11-03)
DX: K92.1 Melena (principal); N18.6 End stage renal disease; I13.11 Hypertensive heart and chronic kidney disease without heart failure, with stage 5 chronic kidney disease, or end stage renal disease; E87.1 Hypo-osmolality and hyponatremia; E44.1 Mild protein-calorie malnutrition; N25.81 Secondary hyperparathyroidism of renal origin; Z68.1 Body mass index [BMI] 19.9 or less, adult; D64.9 Anemia, unspecified; I70.8 Atherosclerosis of other arteries; E11.22 Type 2 diabetes mellitus with diabetic chronic kidney disease; E78.5 Hyperlipidemia, unspecified; I70.0 Atherosclerosis of aorta; Z82.49 Family history of ischemic heart disease and other diseases of the circulatory system; Z83.3 Family history of diabetes mellitus; Z85.118 Personal history of other malignant neoplasm of bronchus and lung; Z99.2 Dependence on renal dialysis; Z79.899 Other long term (current) drug therapy; Z84.1 Family history of disorders of kidney and ureter; Z88.2 Allergy status to sulfonamides; Z88.8 Allergy status to other drugs, medicaments and biological substances
CPT/HCPCS: 36415; 71045; 74176; 80048; 80053; 82150; 83690; 83735; 85025; 85610; 85730; 86850; 86900; 86901; 87081; 90935; 93005; 96365; 96375; J0696; J0885; J3490

== ENCOUNTER 2017-11-19 20:26 | Emergency (ER) | payer MEDICAID, MEDICARE ==
[~2017-11-19] VITALS: Ht 167.6 cm; Wt 43.1 kg
[~2017-11-19 20:26] MED LIST changes: -B-CO1CAP6 PO; +B-COTAB10 OR; -CLO01T PO; -LABE200T18 PO; -PANT40TA2 PO; +TEMA30CA PO
[2017-11-19 21:30] LABS: Basophils # (auto) 0 uL; Basophils % (auto) 0.3 % (0.0-2.0); Eosinophils # (auto) 0 uL; Eosinophils % (auto) 0.2 % (0.0-7.0); Hematocrit 26.6 % (36.0-46.0); Hemoglobin 9.1 g/dL (12.2-16.2); Lymphocytes # (auto) 0.4 uL; Mean Corpuscular Hemoglobin 31.7 pg (28.0-32.0); Mean Corpuscular Hgb Conc. 34.1 g/dL (32.0-36.0); Mean Corpuscular Volume 93.1 fL (80.0-100.0); Monocytes # (auto) 0.6 uL; Monocytes % (auto) 10.1 % (0.0-12.0); Neutrophils # (auto) 4.9 uL; Neutrophils % (auto) 83.4 % (37.0-80.0); Nucleated Red Blood Cells % 0.1 %; Platelet Count (auto) 108 10^3/uL (140-450); Red Blood Cells 2.86 10^6/uL (4.0-5.20); Red Cell Distribution Width 17.7 % (11.8-14.3); White Blood Cell 5.9 10^3/uL (4.4-10.8)
[2017-11-19 21:40] LABS: INR 1.02 (0.9-1.15); Partial Thromboplastin Time 33.1 sec (23.78-33.04); Prothrombin Time 10.9 sec (9.27-12.13)
[2017-11-19 21:41] LABS: Calcium 8.1 mg/dL (8.5-10.1)
[2017-11-19 21:44] LABS: Albumin 3.3 g/dL (3.4-5.0)
[2017-11-19 21:47] LABS: Bilirubin, Total 0.5 mg/dL (0.2-1.0)
[2017-11-20] MEDS ORDERED: cloNIDine HCL 0.1 MG TAB PO ONE (00:45)
[2017-11-20 01:40] VITALS: BP 182/99
== END 2017-11-20 00:43 | disposition home or self-care (01) ==
LOC: ER 20:29
DX: R04.0 Epistaxis (principal); D64.9 Anemia, unspecified; I12.0 Hypertensive chronic kidney disease with stage 5 chronic kidney disease or end stage renal disease; E11.22 Type 2 diabetes mellitus with diabetic chronic kidney disease; N18.6 End stage renal disease; Z99.2 Dependence on renal dialysis; Z79.899 Other long term (current) drug therapy; Z88.2 Allergy status to sulfonamides
CPT/HCPCS: 36415; 80053; 85025; 85610; 85730

== ENCOUNTER → 2018-03-22 | Outpatient (CLI) | payer MEDICARE, MEDICAID ==
[2018-03-22 09:08] LABS: Basophils # (auto) 0.1 uL; Basophils % (auto) 0.9 % (0.0-2.0); Eosinophils # (auto) 0.1 uL; Hematocrit 33.4 % (36.0-46.0); Hemoglobin 11.3 g/dL (12.2-16.2); Lymphocytes # (auto) 0.4 uL; Lymphocytes % (auto) 7.1 % (10.0-50.0); Mean Corpuscular Hemoglobin 32.4 pg (28.0-32.0); Mean Corpuscular Hgb Conc. 33.7 g/dL (32.0-36.0); Mean Corpuscular Volume 96.1 fL (80.0-100.0); Monocytes # (auto) 0.6 uL; Monocytes % (auto) 9.3 % (0.0-12.0); Neutrophils # (auto) 4.8 uL; Neutrophils % (auto) 80.7 % (37.0-80.0); Platelet Count (auto) 128 10^3/uL (140-450); Red Blood Cells 3.48 10^6/uL (4.0-5.20); Red Cell Distribution Width 16.9 % (11.8-14.3)
[2018-03-22 09:26] LABS: INR 1.07 (0.9-1.15); Partial Thromboplastin Time 33.8 sec (23.78-33.04); Prothrombin Time 11.4 sec (9.27-12.13)
[2018-03-22 09:28] LABS: Albumin 3.2 g/dL (3.4-5.0); BUN/Creatinine Ratio 6.8; Potassium 3.7 mmol/L (3.5-5.1)
[2018-03-22 09:32] LABS: Bilirubin, Total 0.9 mg/dL (0.2-1.0); Total Protein 8.6 g/dL (6.4-8.2)
== END | disposition home or self-care (01) ==
LOC: LAB 08:46
PROVIDERS: ATTEND Internal Medicine
DX: Z01.818 Encounter for other preprocedural examination (principal); I12.0 Hypertensive chronic kidney disease with stage 5 chronic kidney disease or end stage renal disease; N18.6 End stage renal disease; E87.6 Hypokalemia
CPT/HCPCS: 36415; 80053; 80061; 85025; 85610; 85652; 85730

== ENCOUNTER → 2018-03-24 | Outpatient (CLI) | payer MEDICARE, MEDICAID | END | disposition home or self-care (01) | LOC: Rad HDHVI 11:04 | PROVIDERS: ATTEND Internal Medicine Cardiovascular Disease | DX: I08.1 Rheumatic disorders of both mitral and tricuspid valves (principal); I70.0 Atherosclerosis of aorta; E78.5 Hyperlipidemia, unspecified; I11.9 Hypertensive heart disease without heart failure | CPT/HCPCS: 93306 ==

== ENCOUNTER → 2018-04-05 | Outpatient (CLI) | payer MEDICAID, MEDICARE ==
[~2018-04-05] VITALS: Ht 167.6 cm; Wt 44.9 kg
[~2018-04-05] MED LIST changes: +ADENOSINE 38 MG in GIVE UN-DILUTED 0 ML IV ONE; +ADENOSINE 90 MG/30 ML INJ IV ONE; +cloNIDine HCL 0.1 MG TAB ONE
[2018-04-05 15:56] VITALS: BP 181/96
== END | disposition home or self-care (01) ==
LOC: Rad HDHVI 14:12
PROVIDERS: ATTEND Internal Medicine Cardiovascular Disease
DX: Z01.810 Encounter for preprocedural cardiovascular examination (principal); I12.0 Hypertensive chronic kidney disease with stage 5 chronic kidney disease or end stage renal disease; N18.6 End stage renal disease
CPT/HCPCS: 78452; 93005; 96374; 96375; A9500; J0153